=== PATIENT | female | born 1985 | race Caucasian/White ===

== ENCOUNTER 2021-01-28 13:01 | Outpatient (CLI) | payer BC ==
[2021-01-28 13:17] LABS: BHCG - Serum Negative (NEGATIVE); Pregs Control Background? CLEAR/WHITE (CLR/WHITE); Pregs Control Bar Appear? YES (CONTROL BAR)
== END 2021-01-28 13:02 | disposition home or self-care (01) ==
LOC: RAD 13:01
PROVIDERS: ATTEND Obstetrics & Gynecology
DX: O08.9 Unspecified complication following an ectopic and molar pregnancy (principal); Q52.9 Congenital malformation of female genitalia, unspecified
CPT/HCPCS: 36415; 58340; 74740; 84703

== ENCOUNTER 2021-01-31 09:23 | Outpatient (CLI) | payer BC ==
[2021-01-31] MEDS ORDERED: Iopamidol 300 61% 100 ML VIAL FS ONE (12:34)
== END 2021-01-31 09:24 | disposition home or self-care (01) ==
LOC: RAD 09:23
PROVIDERS: ATTEND Obstetrics & Gynecology
DX: Q52.9 Congenital malformation of female genitalia, unspecified (principal)
CPT/HCPCS: 74410; Q9967

== ENCOUNTER 2023-11-08 09:40 | Outpatient (CLI) | payer OTHER ==
[2023-11-08] MEDS ORDERED: Iopamidol 30 ML ONE (10:36)
== END 2023-11-08 09:41 | disposition home or self-care (01) ==
LOC: RAD 09:40
PROVIDERS: ATTEND Obstetrics & Gynecology
DX: O08.9 Unspecified complication following an ectopic and molar pregnancy (principal)
CPT/HCPCS: 58340; 74740; Q9967